=== PATIENT | female | born 1960 | race Caucasian/White ===

== ENCOUNTER 2016-12-19 14:48 | Emergency (ER) | payer OTHER ==
[~2016-12-19] VITALS: Ht 170.2 cm; Wt 63.8 kg
[~2016-12-19 14:48] MED LIST: AZITHROMYCIN250 MG PO; FLOXIN OTIC SOLN5 ML LEFT EAR; MUCUS RELIEF400 MG PO; NO MEDICATIONS; PREDNISONE10 MG PO; PROAIR RESPICL90 MCG IH; TYLENOL EXTRA500 MG PO; ZOFRAN ODT8 MG PO
[2016-12-19 16:22] LABS: HEMATOCRIT 45.8 % (36.0-46.0); MCH 31.9 PG (29.0-34.0); MCHC 33.2 G/DL (30.0-36.0); MEAN PLAT.VOLUME 9.3 uM^3 (9.5-12.4); PLATELET COUNT 311 K/uL (156-360); RBC DIS.WIDTH-CV 12.3 % (11.8-14.6); RED BLOOD COUNT 4.77 M/uL (3.80-5.20); WHITE BLOOD COUNT 7.9 K/uL (4.1-10.2)
[2016-12-19] MEDS ORDERED: MULTIVITAMIN1 EAC2 PO (16:32)
[2016-12-19 16:33] LABS: CHLORIDE 106 mEq/L (99-109); POTASSIUM 4.3 mEq/L (3.7-5.4); SODIUM 140 mEq/L (136-147)
[2016-12-19] MEDS ORDERED: SINUS MED PO (16:33)
[2016-12-19 16:34] LABS: GLUCOSE 92 mg/dL (70-99)
[2016-12-19 16:36] LABS: ANION GAP 9 MEQ/L (2-14)
[2016-12-19 16:38] LABS: GFR ESTIMATE (CALCULATED) > 59 mL/min/
[2016-12-19 16:39] LABS: UREA NITROGEN (BUN) 19 mg/dL (9-23)
[2016-12-19 16:40] LABS: TROP-I INTERPRETATION NEGATIVE; TROPONIN-I < 0.01 ng/mL (0.0-0.30)
[2016-12-19] MEDS ORDERED: ZITHROMAX Z-PA250 MG PO (17:24)
[2016-12-19] MEDS ORDERED: PREDNISONE20 MG PO (17:24)
[2016-12-19] MEDS ORDERED: VENTOLIN HFA18 GM IH (17:24)
[2016-12-19 17:40] VITALS: BP 141/75
== END 2016-12-19 17:42 | disposition home or self-care (01) ==
LOC: EME 14:48
PROVIDERS: Physician Assistant
DX: J40 Bronchitis, not specified as acute or chronic (principal); I10 Essential (primary) hypertension; F17.200 Nicotine dependence, unspecified, uncomplicated
CPT/HCPCS: 71020; 80048; 84484; 85027; 93005; 99281; 99284

== ENCOUNTER 2017-02-27 15:45 | Emergency (ER) | payer OTHER ==
[~2017-02-27] VITALS: Ht 177.8 cm; Wt 63.4 kg
[~2017-02-27 15:45] MED LIST changes: +MULTIVITAMIN1 EAC2 PO; +PREDNISONE20 MG PO; +SINUS MED PO; +VENTOLIN HFA18 GM IH; +ZITHROMAX Z-PA250 MG PO
[2017-02-27] MEDS ORDERED: FLEXERIL10 MG PO (18:37)
[2017-02-27] MEDS ORDERED: NAPROXEN500 MG PO (18:37)
[2017-02-27] MEDS ORDERED: LIDODERM 5% P1 PATCH TD (18:37)
[2017-02-27 18:44] VITALS: BP 156/75
== END 2017-02-27 18:44 | disposition home or self-care (01) ==
LOC: EME 15:45
DX: M54.5 Low back pain (principal); M54.2 Cervicalgia; W18.30XA Fall on same level, unspecified, initial encounter; Y99.0 Civilian activity done for income or pay; F17.200 Nicotine dependence, unspecified, uncomplicated
CPT/HCPCS: 70450; 72125; 99281; 99283